=== PATIENT | male | born 1945 | race Caucasian/White ===

== ENCOUNTER 2018-06-26 15:53 | Inpatient (IN) | payer MEDICARE, OTHER ==
[~2018-06-26] VITALS: Ht 180.3 cm; Wt 70.0 kg
[~2018-06-26 15:53] MED LIST changes: -PROVIGIL200 MG PO; -ZOFRAN ODT4 MG PO
[2018-06-26 17:15] VITALS: BP 150/76; PULSE 66; TEMP 98.3
[2018-06-26 19:22] VITALS: BP 128/58; PULSE 69; TEMP 97.9
[2018-06-27] VITALS (7 sets, daily range): BP systolic 119–139; BP diastolic 48–76; PULSE 58–67; TEMP 97.6–99.4
[2018-06-27 06:39] LABS: BASO % 0.2 % (0.0-2.0); EOS # 0.1 (0.0-0.7); EOS % 1.2 % (0-4.0); GRAN # 6.7 (1.4-6.5); GRAN % 67.5 % (42.2-75.2); HEMATOCRIT 44.1 % (42.0-52.0); LYMPH # 2.2 (1.2-3.4); LYMPH % 21.9 % (20.0-51.0); MEAN CELL VOLUME 90 fl (80.0-100.0); MEAN CORPUSCULAR HEMOGLOBIN 31 pg (27.0-31.0); MEAN CORPUSCULAR HGB CONC 34 g/dl (33.0-37.0); MEAN PLATELET VOLUME 10.1 fl (7.4-10.4); MONO # 0.9 (0.1-0.6); MONO % 8.9 % (1.7-9.3); PLATELET COUNT 152 K/mm3 (130-400); RED BLOOD COUNT 4.89 M/mm3 (4.20-5.60); REDCELL DISTRIBUTION WIDTH-CV 13.5 % (11.5-14.5)
[2018-06-27 06:52] LABS: ALBUMIN 3.2 gm/dL (3.5-5.0); BILIRUBIN,TOTAL 0.9 mg/dL (0.0-1.0); CALCIUM 7.6 mg/dL (8.4-10.2); CREATININE, serum 0.76 mg/dL (0.66-1.25); POTASSIUM 3.7 mmol/L (3.4-5.0); TOTAL PROTEIN 6.2 gm/dL (6.4-8.2)
[2018-06-27] MEDS ORDERED: PROVIGIL200 MG PO (10:01)
[2018-06-27] MEDS ORDERED: ZOFRAN ODT4 MG PO (12:47)
[2018-06-28 04:30] VITALS: BP 131/64; PULSE 67; TEMP 98.4
[2018-06-28 07:34] VITALS: BP 132/69; PULSE 60; TEMP 98.9
== END 2018-06-28 10:30 | disposition home or self-care (01) | DRG 390 ==
LOC: JCC 15:53
PROVIDERS: Surgery
DX: K56.600 Partial intestinal obstruction, unspecified as to cause (principal); T78.3XXA Angioneurotic edema, initial encounter
CPT/HCPCS: A9284; J2405; J7120

== ENCOUNTER → 2018-06-26 | Outpatient (CLI) | payer MEDICARE, OTHER ==
[~2018-06-26] MED LIST: CALCIUM600 M1 PO; CETIRIZINE; CIALIS5 MG PO; FLOMAX 0.40.4 MG/CAP PO; FOSAMAX PO; HCTZ; HCTZ 25MG TAB25 MG PO; HUMIRA40 MG/0.1; MINOCIN 50M50 MG/CAP PO; MULTIPLE VITAMI1 CAP PO; NORVASC 10MG10 MG PO; NORVASC2.5 MG PO; PROLIA60 MG/ML SQ; PROVIGIL 100MG100 MG PO; PROVIGIL200 MG PO; SINGULAIR 110 MG/TAB PO; ULORIC40 MG PO; ZANTAC 150150 MG; ZOFRAN ODT4 MG PO; ZYRTEC 10MG10 MG PO; plaquenil
== END ==
LOC: COL.RAD 09:54
DX: K56.699 Other intestinal obstruction unspecified as to partial versus complete obstruction (principal)
CPT/HCPCS: Q9967

== ENCOUNTER 2019-05-13 14:22 | Outpatient (CLI) | payer MEDICARE, OTHER ==
[~2019-05-13] VITALS: Ht 180.3 cm; Wt 104.0 kg
[~2019-05-13 14:22] MED LIST changes: +HUMIRA(CF)10 MG/0.1 SQ; -HUMIRA40 MG/0.1; +PROVIGIL200 MG PO; -ZANTAC 150150 MG; +ZANTAC 150150 MG PO; +ZOFRAN ODT4 MG PO
[2019-05-13 14:35] VITALS: BP 139/55; PULSE 69; TEMP 97.7
--- NOTE | 2019-05-13 14:55 | NUR ---
Pt edwin Prolia well. Pt discharged per ambulation with .
[2019-05-13] MEDS ORDERED: COZAAR100 MG PO (15:05)
[2019-05-13] MEDS ORDERED: PROVIGIL200 MG PO (15:09)
[2019-05-13] MEDS ORDERED: ULTRAM 50MG TAB50 MG PO (15:10)
[2019-05-13] MEDS ORDERED: ALEVE 220MG220 MG PO (15:10)
[2019-05-13] MEDS ORDERED: TYLENOL 500MG500 MG PO (15:11)
[2019-05-13] MEDS ORDERED: HUMIRA40 MG/0.4 SQ (15:13)
[2019-05-13] MEDS ORDERED: ATROVENT NASAL15 ML NS (15:14)
[2019-05-13] MEDS ORDERED: DEPO-TESTOS200 MG/M1 IM (15:15)
== END 2019-05-13 15:16 | disposition home or self-care (01) ==
LOC: EUO 14:22
DX: M81.0 Age-related osteoporosis without current pathological fracture (principal)
CPT/HCPCS: J0897

== ENCOUNTER 2020-06-29 14:00 | Outpatient (CLI) | payer MEDICARE, OTHER ==
[~2020-06-29] VITALS: Ht 180.3 cm; Wt 95.5 kg
[2020-06-29 14:00] VITALS: BP 113/63; PULSE 61; TEMP 97.9
[~2020-06-29 14:00] MED LIST changes: +ALEVE 220MG220 MG PO; +ATROVENT NASAL15 ML NS; +COZAAR100 MG PO; +DEPO-TESTOS200 MG/M1 IM; +HUMIRA40 MG/0.4 SQ; +PEPCID40 MG PO; +TYLENOL 500MG500 MG PO; +ULTRAM 50MG TAB50 MG PO
== END 2020-06-29 14:35 | disposition home or self-care (01) ==
LOC: EUO 14:00
DX: M81.0 Age-related osteoporosis without current pathological fracture (principal)
CPT/HCPCS: J0897

== ENCOUNTER → 2020-08-24 | Outpatient (CLI) | payer MEDICARE, OTHER | LOC: COL.RAD 11:05 | DX: N18.31 Chronic kidney disease, stage 3a (principal) ==

== ENCOUNTER 2021-01-30 14:43 | Outpatient (CLI) | payer MEDICARE, OTHER ==
[~2021-01-30] VITALS: Ht 180.3 cm; Wt 100.7 kg
[2021-01-30 15:11] VITALS: BP 136/57; PULSE 61; TEMP 97.8
[2021-01-30] MEDS ORDERED: TOPROL XL 25MG25 MG PO (16:17)
[2021-01-30] MEDS ORDERED: HCTZ 25MG TAB25 MG PO (16:17)
[2021-01-30] MEDS ORDERED: BENICAR40 MG PO (16:18)
[2021-01-30] MEDS ORDERED: ULORIC40 MG PO (16:18)
== END 2021-01-30 16:32 | disposition home or self-care (01) ==
LOC: EUO 14:43
DX: M81.0 Age-related osteoporosis without current pathological fracture (principal)
CPT/HCPCS: J0897

== ENCOUNTER 2021-08-02 14:38 | Outpatient (CLI) | payer MEDICARE, OTHER ==
[~2021-08-02] VITALS: Ht 180.3 cm; Wt 106.0 kg
[~2021-08-02 14:38] MED LIST changes: +BENICAR40 MG PO; +TOPROL XL 25MG25 MG PO
[2021-08-02 15:05] VITALS: BP 151/61; PULSE 63; TEMP 97.7
[2021-08-02] MEDS ORDERED: FARXIGA5 PO (15:05)
== END 2021-08-02 16:11 ==
LOC: EUO 14:38
DX: M81.0 Age-related osteoporosis without current pathological fracture (principal)
CPT/HCPCS: J0897

== ENCOUNTER 2023-08-08 14:57 | Outpatient (CLI) | payer MEDICARE, OTHER ==
[~2023-08-08] VITALS: Ht 180.3 cm; Wt 99.8 kg
[~2023-08-08 14:57] MED LIST changes: +FARXIGA10 PO; +MASON NATURAL2000 IU PO; -NORVASC 10MG10 MG PO; +NORVASC 5MG5 MG/TAB PO
[2023-08-08 15:15] VITALS: BP 132/75; PULSE 63; TEMP 97.9
--- NOTE | 2023-08-08 15:38 | NUR ---
Pt tolerated prolia without issue. He and exit dept, free of complaints.
== END 2023-08-08 15:39 | disposition home or self-care (01) ==
LOC: EUO 14:57
DX: M81.0 Age-related osteoporosis without current pathological fracture (principal)
CPT/HCPCS: J0897

== ENCOUNTER 2024-02-11 13:01 | Outpatient (CLI) | payer MEDICARE, OTHER ==
[~2024-02-11] VITALS: Ht 180.3 cm; Wt 101.6 kg
[2024-02-11] MEDS ORDERED: Denosumab 60 MG/ML SYRINGE SQ ONE (13:30)
[2024-02-11 13:38] VITALS: BP 118/62; PULSE 52; TEMP 98.2
--- NOTE | 2024-02-11 14:00 | NUR ---
Pt tolerated prolia without issue. He and exit dept, free of complaints at discharge.
== END 2024-02-11 14:00 | disposition home or self-care (01) ==
LOC: EUO 13:01
DX: M81.0 Age-related osteoporosis without current pathological fracture (principal)
CPT/HCPCS: J0897

== ENCOUNTER 2024-08-14 14:19 | Outpatient (CLI) | payer MEDICARE, OTHER ==
[~2024-08-14] VITALS: Ht 180.3 cm; Wt 97.4 kg
[2024-08-14] MEDS ORDERED: Denosumab 60 MG/ML SYRINGE SQ ONE (14:45)
[2024-08-14 14:57] VITALS: BP 122/61; PULSE 58; TEMP 98.1
--- NOTE | 2024-08-14 15:13 | NUR ---
Pt tolerated prolia without issue. He and exit dept with steady gait. Free of complaints at discharge.
[2024-08-14] MEDS ORDERED: PROTONIX 40MG T40 MG PO (15:46)
[2024-08-14] MEDS ORDERED: BENICAR40 MG PO (15:56)
== END 2024-08-14 15:13 | disposition home or self-care (01) ==
LOC: EUO 14:19
DX: M81.0 Age-related osteoporosis without current pathological fracture (principal)
CPT/HCPCS: J0897